=== PATIENT | female | born 1970 | race Caucasian/White ===

== ENCOUNTER 2022-04-13 14:16 | Emergency (ER) | payer OTHER ==
[~2022-04-13 14:16] MED LIST: CARBAMAZEPINE200 MG PO; NARCAN4 MG; OXYCODONE-ACET1 EAC1 PO; PERCOCET 5-3251 EACH PO; ROBAXIN750 MG PO; TEGRETOL200 MG PO
[2022-04-13 15:09] LABS: BASOPHIL 0.9 % (0-2); EOSINOPHIL 1.8 % (0-5); HGB 12.6 g/dl (12.5-16.0); LYMPHOCYTE 28.9 % (15-48); MCH 29.5 pg (25.0-31.0); MCHC 34.1 g/dL (32.0-36.0); MCV 86.7 fL (78.0-100.0); MONOCYTE 5.9 % (0-12); MPV 9.3 fL (6.0-9.5); NRBC 0; PLT 229 K/uL (150-400); RBC 4.27 M/uL (4.20-5.40); RDW 12.8 % (11.5-14.0); WBC 13.2 K/uL (4.0-10.5)
[2022-04-13 15:41] LABS: INR 0.93 (0.9-1.2); PROTHROMBIN TIME 12.2 SECONDS (11.9-13.9)
[2022-04-13 15:46] LABS: ALBUMIN 3.9 g/dL (3.4-5.0); BILIRUBIN - TOTAL 0.3 mg/dL (0.2-1.0); CREATININE 0.63 mg/dL (0.51-0.95); GLOBULIN (CALCULATION) 3.1 g/dL; POTASSIUM 4.4 mmol/L (3.5-5.1)
[2022-04-13 18:34] LABS: CORONAVIRUS 2019 SARS-COV-2 NEGATIVE (NEGATIVE); INFLUENZA A NAA NEGATIVE (NEGATIVE)
== END 2022-04-13 19:30 | disposition home or self-care (01) ==
LOC: FER 14:16
PROVIDERS: Emergency Medicine
DX: R07.89 Other chest pain (principal); E87.1 Hypo-osmolality and hyponatremia; Z20.822 Contact with and (suspected) exposure to COVID-19; Z88.1 Allergy status to other antibiotic agents; Z88.5 Allergy status to narcotic agent
CPT/HCPCS: 36415; 71045; 80053; 84484; 85025; 85379; 85610; 85730; 93005; U0002